=== PATIENT | female | born 1955 | race Caucasian/White ===

== ENCOUNTER → 2016-11-29 | Day surgery (SDC) | payer OTHER ==
[~2016-11-29] MED LIST: ALL220TA PO; ATROPINE SULFATE 1% OPHT SOLN 2 ML BTL ONE; DARV PO; DEXAMETHASONE SOD PHOS 4 MG/ML VIAL ONE; EPINEPHrine HCL (1:1000) 1 MG/ML VIAL ONE; FLURBIPROFEN 0.03% OPHT SOLN 2.5 ML BTL ONE; HYALURONIDASE/LIDOCAINE/BUPIVACAINE 11 ML SYR TL ONE; LACTATED RINGER'S 1000 ML INJ 1,000 ML ONE; NEOMYCIN/POLYMYXIN/DEXAMETHASONE OPTH OINT 3.5 GM TUBE ONE; NEUR100C PO; PHENYLEPHRINE HCL 2.5% OPTH SOLN 2 ML BTL ONE; PROPOFOL 200 MG/20 ML AMP IV ONE; SODIUM CHLORIDE 0.9% INJ 10 ML ONE; SYNT25TA; TRIAMCINOLONE ACETONIDE 40 MG/ML VIAL ONE; TROPICAMIDE 1% OPHT SOLN 15 ML BTL ONE; ceFAZolin INJ 1,000 MG VIAL ONE
--- NOTE | 2016-12-07 14:23 | TN ---
cc: JAYRO VELOZ MD DATE OF SURGERY 12/05/2016 DATE OF 1955 PREOPERATIVE DIAGNOSIS Macular hole left eye POSTOPERATIVE DIAGNOSIS Macular hole left eye PROCEDURE Pars plan a vitrectomy, membrane pealing, gas-fluid exchange left eye. ANESTHESIA MAC SURGEON Jayro Veloz MD COMPLICATIONS None PROCEDURE After informed consent was obtained and the eye was anesthetized with peribulbar anesthesia, she was brought to the operating room and the left eye was prepared and draped in the usual sterile fashion. A wire lid speculum was placed in the patient's left eye. 23 gauge vitrectomy cannulas were then placed in the lower temporal, supratemporal and supranasal quadrants 3 millimeters posterior to the corneoscleral limbus. An infusion cannula was placed lower temporally. Core vitrectomy was then performed using the vitreous cutter. The vitrectomy was carried out as far as possible to the vitreous base. Posteriorly the internal limiting membrane was peeled off from around the macular hole using intraocular forceps. Careful indirect ophthalmoscopy with scleral depression was then performed and no peripheral retinal breaks were noted. A complete air fluid exchange was then performed. The air was then exchanged for 16% C3F8. The three vitrectomy cannulas were then removed. Subconjunctival injections of dexamethasone and Ancef were placed. An atropine drop, Maxitrol ointment and a patch and shield were then applied. The patient tolerated the procedure well. There were no complications. She will remain face down over the next five days. She will follow up [facility]. Jayro Veloz MD TAB/DJL /6:43 PM /2:02 PM
== END | disposition home or self-care (01) ==
LOC: ESDC 12:03
PROVIDERS: ATTEND Ophthalmology Retina Specialist
DX: H35.342 Macular cyst, hole, or pseudohole, left eye (principal)
CPT/HCPCS: 00145; 67042; J0171; J0690; J1100; J3301; J7120

== ENCOUNTER 2017-07-27 16:22 | Emergency (ER) | payer OTHER ==
[~2017-07-27] VITALS: Ht 160 cm; Wt 82.0 kg
[~2017-07-27 16:22] MED LIST changes: -ATROPINE SULFATE 1% OPHT SOLN 2 ML BTL ONE; -DEXAMETHASONE SOD PHOS 4 MG/ML VIAL ONE; -EPINEPHrine HCL (1:1000) 1 MG/ML VIAL ONE; -FLURBIPROFEN 0.03% OPHT SOLN 2.5 ML BTL ONE; -HYALURONIDASE/LIDOCAINE/BUPIVACAINE 11 ML SYR TL ONE; -LACTATED RINGER'S 1000 ML INJ 1,000 ML ONE; -NEOMYCIN/POLYMYXIN/DEXAMETHASONE OPTH OINT 3.5 GM TUBE ONE; -PHENYLEPHRINE HCL 2.5% OPTH SOLN 2 ML BTL ONE; -PROPOFOL 200 MG/20 ML AMP IV ONE; -SODIUM CHLORIDE 0.9% INJ 10 ML ONE; -TRIAMCINOLONE ACETONIDE 40 MG/ML VIAL ONE; -TROPICAMIDE 1% OPHT SOLN 15 ML BTL ONE; -ceFAZolin INJ 1,000 MG VIAL ONE
[2017-07-27 16:24] VITALS: BP 167/88; PULSE 110; RESP 14; TEMP 98.3; O2SAT 99
--- NOTE | 2017-07-27 17:20 | PD ---
HPI Chief Complaint: Pain: Acute or Chronic Time Seen by Provider: 17:19 Travel History International Travel<30 days: No Contact w/Intl Traveler<30days: No Traveled to known affect area: No History of Present Illness HPI 62-year-old female presents the emergency department with complaints of left thigh pain. Patient also reports 2 episodes of chest pain in the last 2 days which caused her to awaken at night. Patient reports a history of headache over the past 2 weeks which is now improved. Patient reports history of multiple superficial phlebitis is from chronic varicose veins treated with stripping hypertonic Saline in the past. Patient Relates a Recent Trip to [place] Where She Was Driving the Car Quite Some Time She Returned from about a Week Ago. Patient Denies Significant Shortness of Breath or Cough. Patient Has No Cardiac History. She Has Had Some Nausea, but No Vomiting or diarrhea. Patient has no previous history of cardiac issues. Patient states pain is worse with ambulation, and worse today. Patient is specific say it hurts along the medial thigh over her obvious varicose veins. There is some mild erythema. Pain is currently about an 8 out of 10. Patient has multiple allergies including aspirin, CT dye, but she can take ibuprofen and Aleve. PFSH Past Medical History Cardiovascular Problems: Yes (PHELBITIS) Diminished Hearing: No Migraines: Yes Menopausal: Yes Tubal Ligation: Yes (1992) Past Surgical History Eye Surgery: Yes (2004--CATARACT SURGERY LEFT EYE) Hysterectomy: Yes (1997--"ONE OVARY LEFT") Other Surgery: Yes ("VEIN STRIPPING,R.LEG,1983 & 1999" "L.LEG 1/2 STRIPPED IN 1999") Social History Alcohol Use: No Tobacco Use: No Substance Use: No Allergies-Medications (Allergen,Severity, Reaction): Coded Allergies: aspirin (Unverified Allergy, Severe, 07/27/17) diatrizoate meglumine (Unverified Allergy, Mild, HIVES, 07/27/17) gadobenic acid (Unverified Allergy, Mild, HIVES, 07/27/17) gadodiamide (Unverified Allergy, Mild, HIVES, 07/27/17) gadoteridol (Unverified Allergy, Mild, HIVES, 07/27/17) iodixanol (Unverified Allergy, Mild, HIVES, 07/27/17) iohexol (Unverified Allergy, Unknown, 07/27/17) iopamidol (Unverified Allergy, Unknown, Premedicated--hives,red face,sob, edema, 07/27/17) Reported Meds & Prescriptions Reported Meds & Active Scripts Active Reported Aleve Arthritis (Naproxen Sodium) 220 Mg Tab 220 Mg PO BID Levothyroxine (Levothyroxine Sodium) 25 Mcg Tab 25 Mcg PO DAILY Review of Systems Except as stated in HPI: all other systems reviewed are Neg General / Constitutional: No: Fever Eyes: No: Visual changes HENT: No: Headaches Cardiovascular: Positive: Chest Pain or Discomfort (see history of present illness.), Varicosities, Varicosities, Phlebitis, No: Palpitations, Irregular Rhythm, Tachycardia, Diaphoresis, Syncope, Dyspnea on exertion, Edema, Cyanosis , Claudication Respiratory: No: Cough, Shortness of Breath, Wheezing Gastrointestinal: Positive: Nausea, No: Vomiting, Diarrhea, Abdominal Pain Genitourinary: No: Dysuria Musculoskeletal: No: Myalgias, Arthralgias, Limited ROM, Pain Skin: No Rash Neurologic: No: Weakness Psychiatric: No: Depression Endocrine: No: Polydipsia Hematologic/Lymphatic: No: Easy Bruising Physical Exam Narrative GENERAL: Patient appears in no acute distress. SKIN: Warm and dry. Normal color. Normal turgor. Patient has multiple large varicose veins in the left upper and lower leg. She has point tenderness over the upper left medial thigh with some mild erythema over the varicosity. There is no other signs of obvious cellulitis. HEAD: Atraumatic. Normocephalic. EYES: Pupils equal and round. No scleral icterus. No injection or drainage. ENT: No nasal bleeding or discharge. Mucous membranes pink and moist. NECK: Trachea midline. Supple and nontender. CARDIOVASCULAR: Regular rate and rhythm. No murmurs gallops or rubs appreciated. RESPIRATORY: No accessory muscle use. Clear to auscultation. Breath sounds equal bilaterally. GASTROINTESTINAL: Abdomen soft, non-tender, nondistended. Hepatic and splenic margins not palpable. MUSCULOSKELETAL: Extremities without clubbing, cyanosis, or edema. No obvious deformities. Patient has a negative Homans sign. NEUROLOGICAL: Awake and alert. No obvious cranial nerve deficits. Motor grossly within normal limits. Five out of 5 muscle strength in the arms and legs. Normal speech. PSYCHIATRIC: Appropriate mood and affect; insight and judgment normal. Data Data Last Documented VS Vital Signs Date Time Temp Pulse Resp B/P (MAP) Pulse Ox O2 Delivery O2 Flow Rate FiO2 07/27/17 18:40 99 20 139/81 (100) 96 Room Air 07/27/17 16:24 98.3 Orders Orders Electrocardiogram (07/27/17 ) Electrocardiogram (07/27/17 17:30) B-Type Natriuretic Peptide (07/27/17:30) Ckmb (Isoenzyme) Profile (07/27/17 17:30) Complete Blood Count With Diff (07/27/17:30) Comprehensive Metabolic Panel (07/27/17:30) Magnesium (Mg) (07/27/17:30) Prothrombin Time / Inr (Pt) (07/27/1730) Act Partial Throm Time (Ptt) (07/27/17:30) Troponin I (07/27/17:30) Lipase (07/27/17:30) Chest, Single Ap (07/27/17:30) Ecg Monitoring (07/27/17:30) Bilateral Bp Monitoring (07/27/17:30) Iv Access Insert/Monitor (07/27/17:30) Oximetry (07/27/17:30) Oxygen Administration (07/27/17:30) Clopidogrel (Plavix) (07/27/17 17:30) Sodium Chloride 0.9% Flush (Ns Flush) (07/27/17 17:30) Sodium Chlorid 0.9% 500 Ml Inj (Ns 500 M (07/27/17 17:30) Us Leg Venous Doppler (07/27/17 17:30) Morphine Inj (Morphine Inj) (07/27/17 17:30) Ondansetron Inj (Zofran Inj) (07/27/17 17:30) Ventilation & Perfusion Scan (07/27/17 ) Labs Laboratory Tests Test 07/27/17 17:32 White Blood Count 5.6 TH/MM3 Red Blood Count 4.21 MIL/MM3 Hemoglobin 12.9 GM/DL Hematocrit 38.5 % Mean Corpuscular Volume 91.4 FL Mean Corpuscular Hemoglobin 30.5 PG Mean Corpuscular Hemoglobin Concent 33.4 % Red Cell Distribution Width 13.5 % Platelet Count 201 TH/MM3 Mean Platelet Volume 7.8 FL Neutrophils (%) (Auto) 49.5 % Lymphocytes (%) (Auto) 40.1 % Monocytes (%) (Auto) 7.6 % Eosinophils (%) (Auto) 2.1 % Basophils (%) (Auto) 0.7 % Neutrophils # (Auto) 2.8 TH/MM3 Lymphocytes # (Auto) 2.2 TH/MM3 Monocytes # (Auto) 0.4 TH/MM3 Eosinophils # (Auto) 0.1 TH/MM3 Basophils # (Auto) 0.0 TH/MM3 CBC Comment DIFF FINAL Differential Comment Prothrombin Time 11.1 SEC Prothromb Time International Ratio 1.0 RATIO Activated Partial Thromboplast Time 26.6 SEC Blood Urea Nitrogen 6 MG/DL Creatinine 0.62 MG/DL Random Glucose 93 MG/DL Total Protein 7.9 GM/DL Albumin 4.0 GM/DL Calcium Level 9.5 MG/DL Magnesium Level 2.2 MG/DL Alkaline Phosphatase 89 U/L Aspartate Amino Transf (AST/SGOT) 24 U/L Alanine Aminotransferase (ALT/SGPT) 33 U/L Total Bilirubin 0.7 MG/DL Sodium Level 136 MEQ/L Potassium Level 3.9 MEQ/L Chloride Level 100 MEQ/L Carbon Dioxide Level 27.3 MEQ/L Anion Gap 9 MEQ/L Estimat Glomerular Filtration Rate 98 ML/MIN Total Creatine Kinase 44 U/L Troponin I LESS THAN 0.02 NG/ML B-Type Natriuretic Peptide 7 PG/ML Lipase 162 U/L MDM Medical Decision Making Medical Screen Exam Complete: Yes Emergency Medical Condition: Yes Medical Record Reviewed: Yes Differential Diagnosis Atypical chest pain. Cardiac syndrome. PE. DVT. Phlebitis. Varicose veins. Narrative Course Patient is medically stable at time of exam. Labs ordered including CBC, lipase, CMP, PT PTT and INR, cardiac panel. Chest x-ray, EKG, and VQ scan are ordered. IV access is obtained, and patient is given 2 mg morphine IV, 4 mg Zofran IV, and 500 mL was normal saline bolus. Patient is given 300 mg Plavix by mouth. CBC is unremarkable. Coagulation studies are normal. Chemistries are unremarkable. ProBNP is 7. Chest x-ray is unremarkable for acute process per radiologist. Ultrasound left lower extremity shows a superficial phlebitis of the area tenderness, but no signs of acute DVT. This is per radiologist. VQ scan of the chest is normal per radiologist. All testing is normal. Patient is discussed with Dr. Cristina feels the patient is stable for discharge home with treatment for phlebitis. Patient is given Keflex 500 mg by mouth now. Patient is given 30 mg Toradol IV. Patient continued on Keflex 500 mg 3 times a day for 7 days. Patient given a prescription for Naprosyn 375 twice a day for 10 days. Patient is to use heat to the affected areas and follow up with her primary care physician as needed. Diagnosis Primary Impression: Phlebitis and thrombophlebitis Referrals: Primary Care Physician Patient Instructions: General Instructions, Superficial Thrombophlebitis (ED) Additional Instructions: All testing is normal. Patient is discussed with Dr. Cristina feels the patient is stable for discharge home with treatment for phlebitis. Patient is given Keflex 500 mg by mouth now. Patient is given 30 mg Toradol IV. Patient continued on Keflex 500 mg 3 times a day for 7 days. Patient given a prescription for Naprosyn 375 twice a day for 10 days. Patient is to use heat to the affected areas and follow up with her primary care physician as needed. Med/Other Pt SpecificInfo: Prescription(s) given Scripts Naproxen (Naproxen) 375 Mg Tab 375 MG PO BID for 10 Days, #20 TAB 0 Refills Prov: Saad Cristina MD 07/27/17 Cephalexin (Keflex) 500 Mg Cap 500 MG PO Q8H for Infection for 7 Days, #21 CAP 0 Refills Prov: Saad Cristina MD 07/27/17 Disposition: 01 DISCHARGE HOME Condition: Stable Nii Guillermo Jul 27, 2017 17:19
[2017-07-27] MEDS ORDERED: LEVO25TA4 PO (17:28)
[2017-07-27] MEDS ORDERED: ALEV220T14 PO (17:28)
[2017-07-27] MEDS ORDERED: CLOPIDOGREL 300 MG TAB PO ONE (17:30)
[2017-07-27] MEDS ORDERED: SODIUM CHLORIDE 0.9% FLUSH 10 ML FLUSH IVF PRN (17:30)
[2017-07-27] MEDS ORDERED: SODIUM CHLORID 0.9% 500 ML INJ 500 ML IV ONE (17:30)
[2017-07-27] MEDS ORDERED: MORPHINE SULFATE 2 MG/ML INJ IV PUSH ONE (17:30)
[2017-07-27] MEDS ORDERED: ONDANSETRON HCL 4 MG/2 ML VIAL IV PUSH ONE (17:30)
[2017-07-27 17:38] VITALS: RESP 20; O2SAT 99
[2017-07-27 17:54] LABS: AUTOMATED NEUTROPHIL # 2.8 TH/MM3 (1.8-7.7); BASOPHIL % 0.7 % (0.0-2.0); EOSINOPHIL # 0.1 TH/MM3 (0-0.4); EOSINOPHIL % 2.1 % (0.0-4.0); HEMATOCRIT 38.5 % (35.0-46.0); HEMO FLAGS DIFF FINAL; LYMPH % 40.1 % (9.0-44.0); LYMPHOCYTE # 2.2 TH/MM3 (1.0-4.8); MEAN CELL VOLUME 91.4 FL (80.0-100.0); MEAN CORPUSCULAR HEMOGLOBIN 30.5 PG (27.0-34.0); MEAN CORPUSCULAR HGB CONC 33.4 % (32.0-36.0); MONO % 7.6 % (0.0-8.0); NEUT % 49.5 % (16.0-70.0); PLATELET COUNT 201 TH/MM3 (150-450); RED BLOOD COUNT 4.21 MIL/MM3 (4.00-5.30); RED CELL DISTRIBUTION WIDTH 13.5 % (11.6-17.2); WHITE BLOOD COUNT 5.6 TH/MM3 (4.0-11.0)
[2017-07-27 18:05] LABS: APTT (PATIENT) 26.6 SEC (24.3-30.1); PROTHROMBIN TIME - PATIENT 11.1 SEC (9.8-11.6)
--- NOTE | 2017-07-27 18:12 | RADRPT ---
EXAM DATE/TIME: 07/27/2017 17:47 [facility] COMPARISON: No previous studies available for comparison. INDICATIONS : Patient complains of chest pain. MEDICAL HISTORY : None. SURGICAL HISTORY : None. ENCOUNTER: Initial ACUITY: 3 days PAIN SCORE: 3/10 LOCATION: chest FINDINGS: A single view of the chest demonstrates the lungs to be symmetrically aerated without evidence of mas s, infiltrate or effusion. The cardiomediastinal contours are unremarkable. Osseous structures are intact. CONCLUSION: Normal examination. Trent Perez MD on July 27, 2017 at 18:09 Board Certified Radiologist. This report was verified electronically.
[2017-07-27 18:14] LABS: ANION GAP 9 MEQ/L (5-15); AST (GOT) 24 U/L (15-37); BICARBONATE 27.3 MEQ/L (21.0-32.0); BLOOD UREA NITROGEN 6 MG/DL (7-18); CHLORIDE 100 MEQ/L (98-107); GLOMERULAR FILTRATION RATE 98 ML/MIN (>89); MAGNESIUM 2.2 MG/DL (1.5-2.5); POTASSIUM 3.9 MEQ/L (3.5-5.1); SODIUM (NA) 136 MEQ/L (136-145)
[2017-07-27 18:19] LABS: ALKALINE PHOSPHATASE 89 U/L (45-117); ALT (GPT) 33 U/L (10-53); TOTAL BILIRUBIN ADULT 0.7 MG/DL (0.2-1.0)
[2017-07-27 18:31] LABS: CREATINE KINASE 44 U/L (26-192)
[2017-07-27 18:40] VITALS: BP 139/81; PULSE 99; RESP 20; O2SAT 96
--- NOTE | 2017-07-27 18:49 | RADRPT ---
EXAM DATE/TIME: 07/27/2017 18:16 [facility] COMPARISON: No previous studies available for comparison. INDICATIONS : Left leg pain. MEDICAL HISTORY : Varicocele. Phelbitis. SURGICAL HISTORY : Tubal ligation. Vein stripping. oophrectomy. Laminectomy. Cataract surgery. ENCOUNTER: Initial ACUITY: 1 day PAIN SCORE: 6/10 LOCATION: Left leg. TECHNIQUE: Venous ultrasound of the leg was performed from the inguinal ligament to the proximal calf. Real-bart e, color Doppler and spectral tracing, compression and augmentation techniques were used. FINDINGS: There is normal compressibility of the deep venous system from the inguinal region to the proximal ca lf. No echogenic clot is seen in the lumen of the common femoral, femoral, popliteal, and posterior tibial veins. There is a normal response of the venous system to proximal and distal augmentation an d respiration. CONCLUSION: Normal examination of the deep venous system. There is a thrombosed superficial varicx at the region of the palpable abnormality. Trent Perez MD on July 27, 2017 at 18:45 Board Certified Radiologist. This report was verified electronically.
--- NOTE | 2017-07-27 20:08 | RADRPT ---
EXAM DATE/TIME: 07/27/2017 19:40 [facility] COMPARISON: No previous studies available for comparison. INDICATIONS : Dyspnea. DOSE: 8.5 mCi Tc99m MAA IV 2.4 mCi Tc99m DTPA aerosol MEDICAL HISTORY : None SURGICAL HISTORY : Tubal ligation. Hysterectomy. ENCOUNTER: Initial ACUITY: 1 day PAIN SCALE: 0/10 LOCATION: Chest. TECHNIQUE: Following five minutes of tidal breathing of DTPA aerosol, planar images of the lungs were performed in eight projections. The patient was then injected with MAA, and eight-view perfusion scan was perf ormed. FINDINGS: There is a homogeneous pattern of aerosol delivery to the periphery of both lungs. No focal ventilat ory defects are seen. The perfusion lung scan demonstrates a homogenous pattern of uptake in both lungs. No segmental or s ubsegmental defects are seen. CONCLUSION: Normal examination. Trent Perez MD on July 27, 2017 at 20:06 Board Certified Radiologist. This report was verified electronically.
[2017-07-27] MEDS ORDERED: NAPR-855 PO (20:18)
[2017-07-27] MEDS ORDERED: CEPH-460 PO (20:18)
[2017-07-27] MEDS ORDERED: KETOROLAC TROMETHAMINE 30 MG/ML (IVP) VIAL IV PUSH ONE (20:30)
[2017-07-27] MEDS ORDERED: CEPHALEXIN MONOHYDRATE 500 MG CAP PO ONE (20:30)
--- NOTE | 2017-07-29 08:45 | EKG ---
Date Performed: 07/27/2017 Time Performed: 16:48:53 PTAGE: 62 years EKG: Sinus rhythm INCOMPLETE RIGHT BUNDLE BRANCH BLOCK LEFT ANTERIOR FASCICULAR BLOCK ABNORMAL ECG NO PREVIOUS TRACING DOCTOR: Syd Evans Interpretating Date/Time 07/29/2017 08:43:37
== END 2017-07-27 21:17 | disposition home or self-care (01) ==
LOC: NEPE 16:22
DX: I82.812 Embolism and thrombosis of superficial veins of left lower extremity (principal); I83.12 Varicose veins of left lower extremity with inflammation; R94.31 Abnormal electrocardiogram [ECG] [EKG]
CPT/HCPCS: 71010; 78582; 80053; 82550; 83690; 83735; 83880; 84484; 85025; 85610; 85730; 93005; 93971; 96361; 96374; 96375; 99285; A9540; A9567; J1885; J2270; J2405; J7040